=== PATIENT | female | born 1960 | race Caucasian/White ===

== ENCOUNTER 2017-06-21 08:30 | Day surgery (SDC) | payer MEDICAID ==
[2017-06-21] VITALS (8 sets, daily range): BP systolic 98–134; BP diastolic 67–80
[~2017-06-21] VITALS: Ht 175.3 cm; Wt 50.6 kg
[2017-06-21] MEDS ORDERED: normal saline 1000ml 1,000 ML IV PRN (08:55)
[2017-06-21 08:58] LABS: BASOPHILS % (AUTO) 0 % (0-1); EOSINOPHILS # (AUTO) 0.3 X10'3 (0-0.9); EOSINOPHILS % (AUTO) 1.8 % (0-6); HEMOGLOBIN 15.8 g/dl (12.0-16.0); LYMPHOCYTES # (AUTO) 1.7 X10'3 (1.1-4.8); LYMPHOCYTES % (AUTO) 11.7 % (21-51); MEAN CORPUSCULAR HEMOGLOBIN 30.6 PG (27.0-31.0); MEAN CORPUSCULAR HGB CONC 34.3 % (33.0-36.5); MEAN CORPUSCULAR VOLUME 89.3 FL (78-98); MEAN PLATELET VOLUME 7.2 FL (7.4-10.4); MONOCYTES # (AUTO) 0.8 X10'3 (0-0.9); MONOCYTES % (AUTO) 5.4 % (2-12); NEUTROPHILS # (AUTO) 11.7 X10'3 (1.8-7.7); NEUTROPHILS % (AUTO) 81.1 % (42-75); PLATELET COUNT 424 X10'3 (140-440); RED BLOOD COUNT 5.15 X10'6 (4.20-5.60); RED CELL DISTRIBUTION WIDTH 13.8 % (11.5-14.5); WHITE BLOOD COUNT 14.5 X10'3 (4.5-11.0)
[2017-06-21] MEDS ORDERED: HYDR-3972 PO (09:04)
[2017-06-21] MEDS ORDERED: LORA0.5T PO (09:04)
[2017-06-21] MEDS ORDERED: DYN250C PO (09:04)
[2017-06-21] MEDS ORDERED: MORP-64 PO (09:04)
[2017-06-21] MEDS ORDERED: fentaNYL/PF 50MCG/1 ML 2ML syringe IV PRN (11:25)
[2017-06-21] MEDS ORDERED: midazolam 2 mg/2 ml injection IV PRN (11:25)
[2017-06-21] MEDS ORDERED: ceFAZolin 2gm in dextrose, iso 100 ML IV ONE (11:25)
[2017-06-21] MEDS ORDERED: glucagon, human recombinant 1mg kit IV ONE (11:25)
[2017-06-21] MEDS ORDERED: heparin sodium, porcine/PF 100unit/ml 5ML syringe ICATH ONE (11:25)
[2017-06-21] MEDS ORDERED: LIDOcaine 1%/PF (10mg/ml) 5ml vial SQ ONE ×2 (11:25→11:35)
[2017-06-21] MEDS ORDERED: LIDOcaine 1%/PF (10mg/ml) 5ml vial ONE (11:42)
[2017-06-21] MEDS ORDERED: iohexol 300 MG/1 ML 50ml polymer ONE (11:42)
[2017-06-21] MEDS ORDERED: heparin sodium, porcine/PF 100unit/ml 5ML syringe ONE (11:52)
[2017-06-21] MEDS ORDERED: fentaNYL/PF 50MCG/1 ML 2ML syringe ONE (11:52)
[2017-06-21] MEDS ORDERED: midazolam 2 mg/2 ml injection ONE (11:52)
== END 2017-06-21 14:17 | disposition home or self-care (01) ==
LOC: SSTAY O 08:30
PROVIDERS: ATTEND Radiology Vascular & Interventional Radiology
DX: C10.9 Malignant neoplasm of oropharynx, unspecified (principal); F17.210 Nicotine dependence, cigarettes, uncomplicated; Z88.6 Allergy status to analgesic agent; F32.9 Major depressive disorder, single episode, unspecified; F41.9 Anxiety disorder, unspecified; J44.9 Chronic obstructive pulmonary disease, unspecified; Z79.2 Long term (current) use of antibiotics; Z90.89 Acquired absence of other organs; Z88.2 Allergy status to sulfonamides; Z88.8 Allergy status to other drugs, medicaments and biological substances; Z86.73 Personal history of transient ischemic attack (TIA), and cerebral infarction without residual deficits; Z79.899 Other long term (current) drug therapy
CPT/HCPCS: 36415; 36561; 76937; 77001; 85025; 99152; 99153; J0690; J1642; J2001; J2250; J3010; J7030; Q9967